=== PATIENT | male | born 1960 | race Two or more races ===

== ENCOUNTER 2018-04-28 12:41 | Emergency (ER) | payer SELFPAY ==
[~2018-04-28] VITALS: Ht 172.7 cm; Wt 70.0 kg
[2018-04-28 12:44] VITALS: BP 114/74
== END 2018-04-28 18:12 | disposition left against medical advice (07) ==
LOC: ER 14:25
DX: Z53.21 Procedure and treatment not carried out due to patient leaving prior to being seen by health care provider (principal)